=== PATIENT | female | born 1990 | race Hispanic/Latino ===

== ENCOUNTER 2020-07-15 20:05 | Emergency (ER) | payer OTHER ==
[~2020-07-15] VITALS: Ht 160 cm; Wt 97.1 kg
[~2020-07-15 20:05] MED LIST: PRENATAL VITAM1 EACH PO; PRENATAL VITAMINS
== END 2020-07-15 22:39 | disposition home or self-care (01) ==
LOC: ER 21:15
DX: S93.402A Sprain of unspecified ligament of left ankle, initial encounter (principal); W01.0XXA Fall on same level from slipping, tripping and stumbling without subsequent striking against object, initial encounter; Y93.B9 Activity, other involving muscle strengthening exercises
CPT/HCPCS: 99283

== ENCOUNTER 2023-12-17 18:09 | Emergency (ER) | payer SELFPAY ==
[~2023-12-17] VITALS: Ht 160 cm; Wt 102.1 kg
[2023-12-17 18:35] VITALS: PULSE 74; RESP 16; TEMP 97.3; O2SAT 100
[2023-12-17] MEDS: ACETAMINOPHEN 325 MG TAB PO ONE (19:19)
[2023-12-17] MEDS: KETOROLAC TROMETHAMINE 60 MG/2 ML VIAL IM ONE (21:37)
[2023-12-17] MEDS ORDERED: CYCLOBENZAPRINE5 MG PO (22:06)
[2023-12-17] MEDS ORDERED: NAPROSYN500 MG PO (22:06)
== END 2023-12-17 22:15 | disposition home or self-care (01) ==
LOC: ER 18:30
DX: S00.83XA Contusion of other part of head, initial encounter (principal); R51.9 Headache, unspecified; S40.021A Contusion of right upper arm, initial encounter; S16.1XXA Strain of muscle, fascia and tendon at neck level, initial encounter; S93.491A Sprain of other ligament of right ankle, initial encounter; M25.511 Pain in right shoulder; M25.561 Pain in right knee; W10.8XXA Fall (on) (from) other stairs and steps, initial encounter; Y93.01 Activity, walking, marching and hiking; Y92.89 Other specified places as the place of occurrence of the external cause
CPT/HCPCS: 70450; 72125; 73030; 73060; 73562; 73610; 73630; 99283; J1885